=== PATIENT | female | born 1950 | race Caucasian/White ===

== ENCOUNTER 2019-12-16 06:03 | Inpatient (IN) ==
[2019-12-16] MEDS ORDERED: fentaNYL 100 MCG/2 ML VIAL ONE (06:17)
[2019-12-16] MEDS ORDERED: MIDAZOLAM 2 MG/2 ML VIAL ONE (06:17)
[2019-12-16] MEDS ORDERED: LIDOCAINE 1% 20 ML VIAL ONE (06:18)
[2019-12-16] MEDS ORDERED: HEPARIN/NACL 0.9% 2 UNITS/ML 1,500 ML IV ONE (06:18)
[2019-12-16] MEDS ORDERED: HEPARIN 5,000 UNIT/1 ML VIAL ONE (06:32)
[2019-12-16] MEDS ORDERED: NITROGLYCERIN DRIP 50 MG/250 ML BOTTLE IV ONE (06:57)
[2019-12-16] MEDS ORDERED: NITROPRUSSIDE 50 MG/2 ML VIAL ONE (07:00)
[2019-12-16] MEDS ORDERED: SODIUM CHLORIDE 0.9% 1,000 ML IV SCH (08:00)
[2019-12-16] MEDS ORDERED: NITROGLYCERIN SL 0.4 MG TABLET SL PRN (08:05)
[2019-12-16] MEDS ORDERED: ONDANSETRON 4 MG/2 ML VIAL ONE (08:31)
[2019-12-16] MEDS: ASPIRIN EC 81 MG TABLET PO SCH (08:59)
[2019-12-16] MEDS: TICAGRELOR 90 MG TABLET PO SCH (08:59)
[2019-12-16 10:01] LABS: Albumin 3.1 G/DL (3.4-5.0); Bilirubin,Total 0.6 MG/DL (0.2-1.0); Calcium 8.6 MG/DL (8.5-10.1); Osmolality,Calculated 276.5 MOS/KG (273-304); Total Protein 6.8 G/DL (6.4-8.3)
[2019-12-16 10:24] LABS: Troponin I 27.7 NG/ML (0.00-0.045)
[2019-12-16] MEDS ORDERED: PNEUMOCOCCAL VACCINE (13 VALENT) 0.5 ML SYRINGE IM ONE (11:42)
[2019-12-16] MEDS: ATORVASTATIN 40 MG TABLET PO SCH (11:50)
[2019-12-16] MEDS: ONDANSETRON 4 MG/2 ML VIAL IV PRN (23:45)
[2019-12-17] MEDS: TICAGRELOR 90 MG TABLET PO SCH ×3 (00:33→20:29)
[2019-12-17 09:41] LABS: Basophils # 0.1 10*3/uL (0.0-0.2); Basophils % 0.6 % (0.0-0.8); Eosinophils % 0.3 % (0.00-10.9); Hemoglobin 12.8 GM/DL (12.0-16.0); Immature Granulocytes % 0.3 %; Immature Granulocytes Absolute 0.03 #; Lymphocytes # 1.3 10*3/uL (1.4-4.0); Lymphocytes % 15.5 % (21.3-54.2); Mean Corpuscular Volume 92.2 FL (87-102); Mean Platelet Volume 9.9 FL (9.6-12.0); Monocytes % 5.9 % (1.7-12.7); Neutrophils % 77.4 % (38.7-73.9); Platelet Count 180 T/CUMM (130-400); Red Blood Count 4.34 MC/CUMM (3.8-5.5); White Blood Count 8.6 T/CUMM (4-12)
[2019-12-17 10:04] LABS: Albumin 2.6 G/DL (3.4-5.0); Calcium 8.4 MG/DL (8.5-10.1); Osmolality,Calculated 275.4 MOS/KG (273-304); Total Protein 5.9 G/DL (6.4-8.3)
[2019-12-17 10:08] LABS: Troponin I 31.2 NG/ML (0.00-0.045)
[2019-12-17] MEDS: ATORVASTATIN 40 MG TABLET PO SCH (10:17)
[2019-12-17] MEDS: ASPIRIN EC 81 MG TABLET PO SCH (10:18)
[2019-12-17] MEDS: ONDANSETRON 4 MG/2 ML VIAL IV PRN (10:24)
[2019-12-18 06:32] LABS: Basophils # 0.1 10*3/uL (0.0-0.2); Basophils % 0.6 % (0.0-0.8); Eosinophils % 0.4 % (0.00-10.9); Hematocrit 43.6 VOL% (35.7-47.0); Immature Granulocytes % 0.4 %; Immature Granulocytes Absolute 0.03 #; Lymphocytes # 1.5 10*3/uL (1.4-4.0); Lymphocytes % 18.8 % (21.3-54.2); Mean Corpuscular HGB Conc 32.1 GM/DL (32-36); Mean Corpuscular Volume 93.6 FL (87-102); Mean Platelet Volume 10.3 FL (9.6-12.0); Monocytes % 6.6 % (1.7-12.7); Neutrophils % 73.2 % (38.7-73.9); Platelet Count 211 T/CUMM (130-400); Red Blood Count 4.66 MC/CUMM (3.8-5.5); White Blood Count 8.2 T/CUMM (4-12)
[2019-12-18 06:54] LABS: Albumin 2.8 G/DL (3.4-5.0); Bilirubin,Total 2.2 MG/DL (0.2-1.0); Calcium 8.8 MG/DL (8.5-10.1); Osmolality,Calculated 276.4 MOS/KG (273-304); Total Protein 6.5 G/DL (6.4-8.3)
[2019-12-18] MEDS ORDERED: ALBUTEROL 2.5 MG/3 ML NEB RESP TX SCH (07:00)
[2019-12-18 07:46] VITALS: BP 109/57
[2019-12-18] MEDS: ASPIRIN EC 81 MG TABLET PO SCH (09:11)
[2019-12-18] MEDS: TICAGRELOR 90 MG TABLET PO SCH (09:11)
[2019-12-18] MEDS: ATORVASTATIN 40 MG TABLET PO SCH (09:11)
== END 2019-12-18 10:34 | disposition home or self-care (01) | DRG 247 ==
LOC: N.CL 06:03 → N.ICU 06:25 → N.TELEN 12-17 20:11
PROVIDERS: ADMIT Internal Medicine Cardiovascular Disease; ATTEND Internal Medicine Cardiovascular Disease

== ENCOUNTER 2022-06-24 13:47 | Inpatient (IN) ==
[2022-06-24] MEDS ORDERED: ALBUTEROL 2.5 MG/3 ML NEB RESP TX PRN (17:12)
[2022-06-24] MEDS ORDERED: ACETAMINOPHEN 325 MG TABLET PO PRN (17:12)
[2022-06-24] MEDS ORDERED: hydrALAZINE 20 MG/1 ML VIAL IV PRN (17:12)
[2022-06-24] MEDS ORDERED: ONDANSETRON 4 MG/2 ML VIAL IV ONE (17:14)
[2022-06-24] MEDS ORDERED: MAGNESIUM SULF RIDER 2 GM/50 ML PREMIX IV PRN (17:18)
[2022-06-24] MEDS ORDERED: MAGNESIUM SULF RIDER 4 GM/100 ML PREMIX IV PRN (17:18)
[2022-06-24] MEDS ORDERED: PROMETHAZINE 25 MG/1 ML VIAL IM PRN (17:18)
[2022-06-24] MEDS: DEXTROSE 5% NACL 0.45% 1,000 ML IV SCH (17:38)
[2022-06-24] MEDS: cefTRIAXone 1,000 MG in SODIUM CHLORIDE 0.9% 100 ML IV SCH (17:39)
[2022-06-24] MEDS ORDERED: NICOTINE 21 MG/24 HR PATCH TRANSDERM PRN (17:43)
[2022-06-24 17:50] LABS: Basophils % 0.2 % (0.0-0.8); Eosinophils % 0.2 % (0.00-10.9); Hematocrit 35.8 VOL% (35.7-47.0); Hemoglobin 12.1 GM/DL (12.0-16.0); Immature Granulocytes % 0.9 %; Immature Granulocytes Absolute 0.04 #; Lymphocytes # 1.2 10*3/uL (1.4-4.0); Lymphocytes % 26.7 % (21.3-54.2); Mean Corpuscular HGB Conc 33.8 GM/DL (32-36); Mean Corpuscular Volume 86.7 FL (87-102); Mean Platelet Volume 9.5 FL (9.6-12.0); Monocytes # 0.4 10*3/uL (0.11-0.8); Monocytes % 9.6 % (1.7-12.7); Neutrophils % 62.4 % (38.7-73.9); Platelet Count 178 T/CUMM (130-400); Red Blood Count 4.13 MC/CUMM (3.8-5.5); Red Cell Distribution Width 14.5 % (9.3-17.3)
[2022-06-24 18:16] LABS: Albumin 2.4 G/DL (3.4-5.0); Bilirubin,Total 0.4 MG/DL (0.20-1.00); Calcium 7.6 MG/DL (8.5-10.1); Osmolality,Calculated 280.1 MOS/KG (273-304); Potassium 2.9 MMOL/L (3.5-5.1); Total Protein 5.6 G/DL (6.4-8.2)
[2022-06-24] MEDS: POTASSIUM CHLORIDE RIDER 10 MEQ/100 ML PREMIX IV PRN (18:32)
[2022-06-24] MEDS ORDERED: KETOROLAC 15 MG/1 ML VIAL IV PRN (19:33)
[2022-06-24 19:49] LABS: Bilirubin,Urine Negative (Negative); Glucose,Urine (UA) Negative (Negative); Ketones,Urine 15 mg/dL (Negative); Mucus,Urine Occasional /LPF (Occasional); Nitrite,Urine Negative (Negative); Protein,Urine 30 mg/dL (Negative); Squamous Epithelial Cell,Urine Occasional /HPF (0-10); Urine Appearance Clear (Clear); Urine Color Yellow (Yellow)
[2022-06-24 19:50] LABS: Blood, Urine Negative (Negative)
[2022-06-24] MEDS ORDERED: CIPROFLOXACIN INJ 400 MG/200 ML PREMIX IV SCH (20:00)
[2022-06-24] MEDS: metroNIDAZOLE INJ 500 MG/100 ML PREMIX IV SCH (20:48)
[2022-06-24] MEDS: POTASSIUM CHLORIDE RIDER 10 MEQ/100 ML PREMIX IV SCH (20:48)
[2022-06-24] MEDS: ONDANSETRON 4 MG/2 ML VIAL IV SCH (21:46)
[2022-06-25] MEDS: POTASSIUM CHLORIDE RIDER 10 MEQ/100 ML PREMIX IV SCH ×2 (00:48→07:17)
[2022-06-25] MEDS ORDERED: POTASSIUM CHLORIDE RIDER 10 MEQ/100 ML PREMIX IV SCH (03:30)
[2022-06-25] MEDS: metroNIDAZOLE INJ 500 MG/100 ML PREMIX IV SCH ×3 (04:59→22:23)
[2022-06-25] MEDS: ONDANSETRON 4 MG/2 ML VIAL IV SCH ×3 (05:05→17:17)
[2022-06-25 05:57] LABS: Basophils % 0.7 % (0.0-0.8); Eosinophils % 0.7 % (0.00-10.9); Hematocrit 36.5 VOL% (35.7-47.0); Hemoglobin 12.3 GM/DL (12.0-16.0); Immature Granulocytes % 0.9 %; Immature Granulocytes Absolute 0.04 #; Lymphocytes # 1.2 10*3/uL (1.4-4.0); Lymphocytes % 26.6 % (21.3-54.2); Mean Corpuscular HGB Conc 33.7 GM/DL (32-36); Mean Corpuscular Volume 87.5 FL (87-102); Monocytes # 0.4 10*3/uL (0.11-0.8); Monocytes % 9.8 % (1.7-12.7); Neutrophils % 61.3 % (38.7-73.9); Platelet Count 177 T/CUMM (130-400); Red Blood Count 4.17 MC/CUMM (3.8-5.5); Red Cell Distribution Width 14.9 % (9.3-17.3); White Blood Count 4.47 T/CUMM (4-12)
[2022-06-25 06:32] LABS: Calcium 7.9 MG/DL (8.5-10.1); Osmolality,Calculated 284.7 MOS/KG (273-304); Potassium 3.7 MMOL/L (3.5-5.1); Risk Ratio 4.87; Thyroid Stimulating Hormone 1.52 uIU/ml (0.358-3.74); VLDL Cholesterol 19.4 MG/DL
[2022-06-25] MEDS: DEXTROSE 5% NACL 0.45% 1,000 ML IV SCH ×2 (07:10→22:24)
[2022-06-25] MEDS: PANTOPRAZOLE 40 MG VIAL IV SCH (09:57)
[2022-06-25] MEDS: ATORVASTATIN 40 MG TABLET PO SCH (09:57)
[2022-06-25] MEDS: lisinopriL 5 MG TABLET PO SCH (09:57)
[2022-06-25] MEDS: METOPROLOL SUCCINATE XL 25 MG TABLET PO SCH (09:57)
[2022-06-25] MEDS: cefTRIAXone 1,000 MG in SODIUM CHLORIDE 0.9% 100 ML IV SCH (17:18)
[2022-06-26] MEDS: metroNIDAZOLE INJ 500 MG/100 ML PREMIX IV SCH ×3 (04:47→20:25)
[2022-06-26 05:48] LABS: Basophils % 0.4 % (0.0-0.8); Eosinophils # 0.1 10*3/uL (0.0-0.87); Eosinophils % 1.9 % (0.00-10.9); Hematocrit 40.3 VOL% (35.7-47.0); Hemoglobin 13.2 GM/DL (12.0-16.0); Immature Granulocytes % 0.8 %; Immature Granulocytes Absolute 0.04 #; Lymphocytes # 1.1 10*3/uL (1.4-4.0); Lymphocytes % 20.8 % (21.3-54.2); Mean Corpuscular HGB Conc 32.8 GM/DL (32-36); Mean Corpuscular Volume 88.6 FL (87-102); Mean Platelet Volume 9.7 FL (9.6-12.0); Monocytes # 0.4 10*3/uL (0.11-0.8); Monocytes % 8.1 % (1.7-12.7); Platelet Count 184 T/CUMM (130-400); Red Blood Count 4.55 MC/CUMM (3.8-5.5); Red Cell Distribution Width 14.7 % (9.3-17.3)
[2022-06-26 06:11] LABS: Calcium 8.1 MG/DL (8.5-10.1); Osmolality,Calculated 283.7 MOS/KG (273-304); Potassium 3.7 MMOL/L (3.5-5.1)
[2022-06-26] MEDS ORDERED: VANCOMYCIN 125 MG CAPSULE PO SCH (08:00)
[2022-06-26] MEDS: ATORVASTATIN 40 MG TABLET PO SCH (09:47)
[2022-06-26] MEDS: METOPROLOL SUCCINATE XL 25 MG TABLET PO SCH (09:47)
[2022-06-26] MEDS: PANTOPRAZOLE 40 MG VIAL IV SCH (09:47)
[2022-06-26] MEDS: lisinopriL 5 MG TABLET PO SCH (09:47)
[2022-06-26] MEDS: DEXTROSE 5% NACL 0.45% 1,000 ML IV SCH ×2 (13:07→17:25)
[2022-06-26] MEDS ORDERED: cefTRIAXone 2,000 MG VIAL IM SCH (16:00)
[2022-06-26] MEDS: cefTRIAXone 2,000 MG in SODIUM CHLORIDE 0.9% 100 ML IV SCH (17:25)
[2022-06-27] MEDS: DEXTROSE 5% NACL 0.45% 1,000 ML IV SCH ×3 (03:50→22:58)
[2022-06-27] MEDS: metroNIDAZOLE INJ 500 MG/100 ML PREMIX IV SCH ×3 (04:30→21:35)
[2022-06-27 05:02] LABS: Basophils % 0.6 % (0.0-0.8); Eosinophils # 0.1 10*3/uL (0.0-0.87); Eosinophils % 1.8 % (0.00-10.9); Hematocrit 38.7 VOL% (35.7-47.0); Hemoglobin 12.7 GM/DL (12.0-16.0); Immature Granulocytes % 0.6 %; Immature Granulocytes Absolute 0.04 #; Lymphocytes # 1.2 10*3/uL (1.4-4.0); Lymphocytes % 17.2 % (21.3-54.2); Mean Corpuscular HGB Conc 32.8 GM/DL (32-36); Mean Corpuscular Volume 88.4 FL (87-102); Mean Platelet Volume 9.5 FL (9.6-12.0); Monocytes # 0.6 10*3/uL (0.11-0.8); Monocytes % 8.1 % (1.7-12.7); Neutrophils % 71.7 % (38.7-73.9); Platelet Count 192 T/CUMM (130-400); Red Blood Count 4.38 MC/CUMM (3.8-5.5); Red Cell Distribution Width 14.6 % (9.3-17.3); White Blood Count 6.81 T/CUMM (4-12)
[2022-06-27 05:17] LABS: Osmolality,Calculated 282.8 MOS/KG (273-304); Potassium 3.5 MMOL/L (3.5-5.1)
[2022-06-27] MEDS: METOPROLOL SUCCINATE XL 25 MG TABLET PO SCH (09:43)
[2022-06-27] MEDS: ATORVASTATIN 40 MG TABLET PO SCH (09:43)
[2022-06-27] MEDS: lisinopriL 5 MG TABLET PO SCH (09:43)
[2022-06-27] MEDS: PANTOPRAZOLE 40 MG VIAL IV SCH (09:47)
[2022-06-27] MEDS: cefTRIAXone 2,000 MG in SODIUM CHLORIDE 0.9% 100 ML IV SCH (16:40)
[2022-06-28] MEDS: metroNIDAZOLE INJ 500 MG/100 ML PREMIX IV SCH (03:25)
[2022-06-28] MEDS: DEXTROSE 5% NACL 0.45% 1,000 ML IV SCH ×3 (05:51→17:16)
[2022-06-28] MEDS: lisinopriL 5 MG TABLET PO SCH (10:08)
[2022-06-28] MEDS: PANTOPRAZOLE 40 MG VIAL IV SCH (10:08)
[2022-06-28] MEDS: METOPROLOL SUCCINATE XL 25 MG TABLET PO SCH (10:08)
[2022-06-28] MEDS: ATORVASTATIN 40 MG TABLET PO SCH (10:08)
[2022-06-28] MEDS: metroNIDAZOLE 500 MG TABLET PO SCH ×2 (14:00→21:00)
[2022-06-29] MEDS: DEXTROSE 5% NACL 0.45% 1,000 ML IV SCH
[2022-06-29] MEDS: metroNIDAZOLE 500 MG TABLET PO SCH (05:45)
[2022-06-29 05:58] LABS: Basophils % 0.4 % (0.0-0.8); Eosinophils # 0.2 10*3/uL (0.0-0.87); Eosinophils % 2.1 % (0.00-10.9); Hematocrit 37.2 VOL% (35.7-47.0); Hemoglobin 12.1 GM/DL (12.0-16.0); Immature Granulocytes % 0.5 %; Immature Granulocytes Absolute 0.04 #; Lymphocytes # 1.3 10*3/uL (1.4-4.0); Lymphocytes % 17.6 % (21.3-54.2); Mean Corpuscular HGB Conc 32.5 GM/DL (32-36); Mean Corpuscular Volume 87.3 FL (87-102); Mean Platelet Volume 10.1 FL (9.6-12.0); Monocytes # 0.6 10*3/uL (0.11-0.8); Monocytes % 7.3 % (1.7-12.7); Neutrophils % 72.1 % (38.7-73.9); Platelet Count 206 T/CUMM (130-400); Red Blood Count 4.26 MC/CUMM (3.8-5.5); Red Cell Distribution Width 14.6 % (9.3-17.3); White Blood Count 7.51 T/CUMM (4-12)
[2022-06-29 06:19] LABS: Calcium 8.2 MG/DL (8.5-10.1); Osmolality,Calculated 282.8 MOS/KG (273-304); Potassium 2.8 MMOL/L (3.5-5.1)
[2022-06-29 07:47] VITALS: BP 158/65
[2022-06-29] MEDS ORDERED: LEVOFLOXACIN 500 MG TABLET PO SCH (09:00)
[2022-06-29] MEDS: ATORVASTATIN 40 MG TABLET PO SCH (09:04)
[2022-06-29] MEDS: PANTOPRAZOLE 40 MG VIAL IV SCH (09:04)
[2022-06-29] MEDS: lisinopriL 5 MG TABLET PO SCH (09:04)
[2022-06-29] MEDS: METOPROLOL SUCCINATE XL 25 MG TABLET PO SCH (09:04)
[2022-06-29] MEDS: POTASSIUM CHLORIDE RIDER 10 MEQ/100 ML PREMIX IV PRN (09:05)
== END 2022-06-29 11:08 | disposition home or self-care (01) | DRG 392 ==
LOC: SUATTDRO 16:29 → N.3E 16:29
PROVIDERS: ADMIT Internal Medicine; ATTEND Internal Medicine